=== PATIENT | male | born 1995 | race African-American/Black ===

== ENCOUNTER 2020-06-15 12:01 | Emergency (ER) | payer OTHER ==
[~2020-06-15] VITALS: Ht 180.3 cm; Wt 61.2 kg
--- NOTE | 2020-06-15 12:04 | NUR ---
PT BIBRA TO ED. PER EMS C/OP CHEST PALPITATION, ANXIETY S/P "PUFF BAR" DENIES ANY CHEST PAIN. PT GOWNED AND PLACED ON MONITOR. VSS. AWAITING MD RODRIGUEZ.
--- NOTE | 2020-06-15 12:12 | NUR ---
DR STEWARD AT BEDSIDE FOR EVAL.
[2020-06-15] MEDS ORDERED: LORAZEPAM 1 MG TABLET ONE (12:17)
--- NOTE | 2020-06-15 12:23 | NUR ---
IV LINE STARTED BLOOD DRAWN AND SENT TO LAB.
[2020-06-15] MEDS ORDERED: LORAZEPAM 1 MG TABLET PO ONE (12:30)
[2020-06-15 13:07] LABS: BASOPHILS % (AUTO) 0.3 % (0.0-2.0); EOSINOPHILS % (AUTO) 0.1 % (0.0-6.0); HEMATOCRIT 51 % (39-51); HEMOGLOBIN 17.6 g/dL (13.5-17.5); LYMPHOCYTES # (AUTO) 2.3 /CMM (0.8-4.8); LYMPHOCYTES % (AUTO) 23.6 % (20.0-44.0); MEAN CORPUSCULAR HGB CONC 35 g/dl (31.0-36.0); MEAN CORPUSCULAR VOLUME 98 fL (80-96); MONOCYTES # (AUTO) 0.7 /CMM (0.1-1.30); MONOCYTES % (AUTO) 7.2 % (2.0-12.0); NEUTROPHILS # (AUTO) 6.6 /CMM (1.8-8.9); NEUTROPHILS % (AUTO) 68.8 % (43.0-81.0); PLATELET COUNT (AUTO) 218 /CMM (150-450); RED BLOOD CELL COUNT(AUTO) 5.21 MIL/uL (4.5-6.0); WHITE BLOOD COUNT (AUTO) 9.6 K/uL (4.3-11.0)
[2020-06-15 13:36] LABS: ACETAMINOPHEN < 10 ug/ml (10-30); ALANINE AMINOTRANSFERASE 33 U/L (12-78); ALBUMIN 4.8 g/dL (3.4-5.0); ALCOHOL, BLOOD 48 mg/dL (0-0); ALKALINE PHOSPHATASE 106 U/L (46-116); ASPARTATE AMINOTRANSFERASE 69 U/L (15-37); BILIRUBIN,DIRECT 0.1 mg/dL (0.0-0.2); BILIRUBIN,TOTAL 0.6 mg/dL (0.2-1.0); CALCIUM, SERUM 10.2 mg/dL (8.5-10.1); CARBON DIOXIDE 20 mmol/L (21-32); CHLORIDE 98 mmol/L (98-107); CREATININE 1.2 mg/dL (0.6-1.3); GLUCOSE 92 mg/dL (74-106); POTASSIUM 4.4 mmol/L (3.5-5.1); SODIUM SERUM 138 mmol/L (136-145); TOTAL PROTEIN, SERUM 9.7 g/dL (6.4-8.2); UREA NITROGEN, BLOOD 13 mg/dL (7-18)
--- NOTE | 2020-06-15 14:16 | NUR ---
Patient discharged to home in stable condition. Written and verbal after care instructions given. Patient verbalizes understanding of instruction.
[2020-06-15 14:17] VITALS: BP 126/80
== END 2020-06-15 14:18 | disposition home or self-care (01) ==
LOC: ER 12:05
DX: F41.9 Anxiety disorder, unspecified (principal); F32.9 Major depressive disorder, single episode, unspecified; Z60.2 Problems related to living alone; R94.31 Abnormal electrocardiogram [ECG] [EKG]
CPT/HCPCS: 36415; 71045-TC; 80048-TC; 80076-TC; 84484-TC; 85025-TC; G0480